=== PATIENT | female | born 1960 ===

== ENCOUNTER 2021-02-22 07:38 | Outpatient (CLI) | payer OTHER | END 2021-02-22 07:39 | disposition home or self-care (01) | LOC: LAB 07:38 | PROVIDERS: ATTEND Internal Medicine Cardiovascular Disease | DX: R05 Cough (principal); R06.2 Wheezing; I10 Essential (primary) hypertension; E11.9 Type 2 diabetes mellitus without complications; D68.8 Other specified coagulation defects ==

== ENCOUNTER 2021-02-22 11:00 | Inpatient (IN) | payer OTHER ==
[~2021-02-22] VITALS: Ht 165.1 cm; Wt 95.3 kg
[2021-03-01] MEDS ORDERED: INTEGRA PLUS C1 EACH PO (06:24)
[2021-03-01] MEDS ORDERED: XARELTO10 MG PO (06:24)
[2021-03-01] MEDS ORDERED: OXYC1TAB9 PO (06:24)
[2021-03-01] MEDS ORDERED: BACTRIM DS TAB1 EACH PO (06:24)
== END 2021-03-01 17:07 | disposition home or self-care (01) | DRG 470 ==
LOC: SURG 02-27 05:45 → O/R 02-27 05:45 → SURH 02-27 07:00 → SURG 02-27 11:06
PROVIDERS: ADMIT Orthopaedic Surgery Sports Medicine; ATTEND Orthopaedic Surgery Sports Medicine
PROC: 0SRD0J9 Replacement of Left Knee Joint with Synthetic Substitute, Cemented, Open Approach (ICD-10-PCS; principal; 2021-02-27 07:00)
DX: M17.12 Unilateral primary osteoarthritis, left knee (principal)